=== PATIENT | male | born 2000 | race Caucasian/White ===

== ENCOUNTER 2021-02-09 20:57 | Emergency (ER) | payer SELFPAY ==
[~2021-02-09] VITALS: Ht 165.1 cm; Wt 69.0 kg
[2021-02-09 20:59] VITALS: BP 123/81
== END 2021-02-09 22:20 | disposition left against medical advice (07) ==
LOC: ER 20:57
DX: F10.129 Alcohol abuse with intoxication, unspecified (principal); Y90.0 Blood alcohol level of less than 20 mg/100 ml; Z53.21 Procedure and treatment not carried out due to patient leaving prior to being seen by health care provider